=== PATIENT | male | born 1985 | race Caucasian/White ===

== ENCOUNTER 2020-08-15 10:32 | Emergency (ER) | payer OTHER ==
[~2020-08-15] VITALS: Ht 175.3 cm; Wt 80.7 kg
[~2020-08-15 10:32] MED LIST: ADVIL200 M1 PO; NABUMETONE500 MG PO; ORPH100T PO
[2020-08-15] MEDS ORDERED: KETO10TA2 PO (12:53)
== END 2020-08-15 13:09 | disposition home or self-care (01) ==
LOC: ER 10:32
DX: S93.401A Sprain of unspecified ligament of right ankle, initial encounter (principal); X50.0XXA Overexertion from strenuous movement or load, initial encounter; Y93.89 Activity, other specified; Y92.89 Other specified places as the place of occurrence of the external cause; Y99.8 Other external cause status

== ENCOUNTER 2022-01-16 07:06 | Emergency (ER) | payer OTHER ==
[~2022-01-16] VITALS: Ht 175.3 cm; Wt 74.8 kg
[~2022-01-16 07:06] MED LIST changes: +KETO10TA2 PO
[2022-01-16] MEDS ORDERED: CLONAZEPAM0.5 MG PO (07:27)
== END 2022-01-16 11:06 | disposition home or self-care (01) ==
LOC: ER 07:06
DX: M54.2 Cervicalgia (principal); M54.50 Low back pain, unspecified; M62.838 Other muscle spasm

== ENCOUNTER 2022-01-29 06:47 | Emergency (ER) | payer OTHER ==
[~2022-01-29] VITALS: Ht 175.3 cm; Wt 74.8 kg
[~2022-01-29 06:47] MED LIST changes: +CLONAZEPAM0.5 MG PO
[2022-01-29] MEDS ORDERED: LISINOPRIL2.5 MG PO (07:47)
== END 2022-01-29 10:56 | disposition home or self-care (01) ==
LOC: ER 06:47
DX: M62.838 Other muscle spasm (principal); M40.40 Postural lordosis, site unspecified